=== PATIENT | female | born 1955 | race Hispanic/Latino ===

== ENCOUNTER 2018-07-10 16:11 | Emergency (ER) | payer OTHER ==
[2018-07-10 16:11] VITALS: BMI 31.6
[2018-07-10 17:24] VITALS: RESP 18; TEMP 97.8; O2SAT 98
--- NOTE | 2018-07-10 17:46 | ED PDOC ---
Arrival/HPI - General Chief Complaint: Lower Extremity Problem/Injury Time Seen by Provider: 07/10/18 17:33 Historian: Patient - History of Present Illness Narrative History of Present Illness (Text): 07/10/18 17:41 63 year old female, pmh including hypertension/hypercholesterolemia/diabetes, nkda, complaining of lt. lateral knee pain s/p hit on the bus bench about 1 week ago. Aching pain, aggravated by long hours of standing, no numbness or tingling, no palpitation, no rash, no palpitation, no numbness or tingling, no other medical or psychological complaints. Past Medical History - Provider Review Nursing Documentation Reviewed: Yes - Tetanus Immunization Tetanus Immunization: Unknown - Reproductive Menopause: Yes - Cardiac Hx Cardiac Disorders: Yes Hx Hypertension: Yes - Endocrine/Metabolic Hx Endocrine Disorders: Yes Hx Diabetes Mellitus Type 2: Yes - Psychiatric Hx Anxiety: Yes Hx Substance Use: No - Surgical History Other/Comment: bilat bunion removal, dental - Anesthesia Hx Anesthesia: Yes Hx Anesthesia Reactions: No Hx Malignant Hyperthermia: No - Suicidal Assessment Feels Threatened In Home Enviroment: No Family/Social History - Physician Review Nursing Documentation Reviewed: Yes Family/Social History: Unknown Family HX Smoking Status: Never Smoked Hx Alcohol Use: No Hx Substance Use: No Hx Substance Use Treatment: No Allergies/Home Meds Allergies/Adverse Reactions: Allergies No Known Allergies Allergy (Verified 07/10/18 17:24) Home Medications: Home Meds Medication Instructions Recorded Confirmed Atenolol/Chlorthalidone 1 tab PO DAILY 11/26/14 07/10/18 [Atenolol/Chlorthalidone 50 mg-25 mg] Lisinopril [Zestril] 20 mg PO DAILY 07/10/18 07/10/18 Lovastatin [Altoprev] 20 mg PO DAILY 07/10/18 07/10/18 metFORMIN [glucOPHAGE] 500 mg PO BID 07/10/18 07/10/18 Review of Systems - Review of Systems Constitutional: absent: Fatigue, Fevers Eyes: absent: Vision Changes ENT: absent: Hearing Changes Respiratory: absent: SOB, Cough Cardiovascular: absent: Chest Pain Gastrointestinal: absent: Abdominal Pain, Nausea, Vomiting Genitourinary Female: absent: Dysuria Musculoskeletal: Arthralgias. absent: Back Pain, Neck Pain Skin: absent: Rash, Pruritis, Skin Lesions Neurological: absent: Headache, Dizziness Psychiatric: absent: Anxiety, Depression, Suicidal Ideation Physical Exam Vital Signs Reviewed: Yes Vital Signs Temp Pulse Resp BP Pulse Ox 07/10/18 17:20 97.8 F 96 H 18 182/82 H 98 Temperature: Afebrile Blood Pressure: Hypertensive Pulse: Regular Respiratory Rate: Normal Appearance: Positive for: Well-Appearing, Non-Toxic, Comfortable Pain Distress: Mild Mental Status: Positive for: Alert and Oriented X 3 - Systems Exam Head: Present: Atraumatic, Normocephalic Pupils: Present: PERRL Extroacular Muscles: Present: EOMI Conjunctiva: Present: Normal Mouth: Present: Moist Mucous Membranes Neck: Present: Normal Range of Motion Respiratory/Chest: Present: Clear to Auscultation, Good Air Exchange. No: Respiratory Distress, Accessory Muscle Use Cardiovascular: Present: Regular Rate and Rhythm, Normal S1, S2. No: Murmurs Abdomen: No: Tenderness, Distention, Peritoneal Signs Back: Present: Normal Inspection Upper Extremity: Present: Normal Inspection, Normal ROM, NORMAL PULSES, Neurovascularly Intact, Capillary Refill < 2s, Norm 2-Pt Discrimination. No: Cyanosis, Edema, Deformity Lower Extremity: Present: Normal Inspection, Normal ROM, Deformity, Capillary Refill < 2 s, Other (Lt. knee: +ttp on the lateral of the left knee, no swelling, no joint laxity, negative kaz and whitley signs, FROM without limitation, sensation intact, motor 5/5, neurovascular intact. ). No: Edema Neurological: Present: GCS=15, CN II-XII Intact, Speech Normal, Motor Func Gr ossly Intact, Normal Cerebellar Funct, Gait Normal, Memory Normal Skin: Present: Warm, Dry, Normal Color. No: Rashes Psychiatric: Present: Alert, Oriented x 3, Normal Insight, Normal Concentration Medical Decision Making ED Course and Treatment: 07/10/18 17:47 -lt. knee xray -observe and reassess 07/10/18 18:56 -Lt. knee xray show no fracture or dislocation, degenerative changes noted, advise MRI if the pain perist -Kip wrap applied, she's not a crutches candidate, will give her cane. -Discharge home with celebrex, kip wrap, cane, ice compression, rest, avoid long hours of standing, followup with your own pmd and orthopedic within 2 days, return to the ER for any new or worsening signs or symptoms. - RAD Interpretation Radiology Orders: 07/10/18 17:41 KNEE WITH PATELLA LEFT 3 VIEW [RAD] Stat Date of service: 2018-07-10 18:48:38 PROCEDURE: Left Knee Radiographs. HISTORY: Pain. COMPARISON: None. FINDINGS: BONES: No evidence of acute displaced fracture nor dislocation. The osseous structures appear intact. . JOINTS: Joint spaces relatively preserved. However there appears to be very tiny medial marginal osteophyte formation arising from the tibial plateau. Slight spurring tibial spines. Tiny posterior patella osteophyte also felt be present. JOINT EFFUSION: None. OTHER FINDINGS: None. IMPRESSION: No acute fractures. Minimal degenerative osteoarthritis. 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 Disposition/Present on Arrival - Present on Arrival Any Indicators Present on Arrival: No History of DVT/PE: No History of Uncontrolled Diabetes: No Urinary Catheter: No History of Decub. Ulcer: No History Surgical Site Infection Following: None - Disposition Have Diagnosis and Disposition been Completed?: Yes Diagnosis: Knee injury, Knee pain Disposition: HOME/ ROUTINE Disposition Time: 18:57 Patient Plan: Discharge Patient Problems: Current Active Problems Problem Status Onset Knee injury Acute Knee pain Acute Condition: IMPROVED Additional Instructions: -Discharge home with celebrex, kip wrap, cane, ice compression, rest, avoid long hours of standing, followup with your own pmd and orthopedic within 2 days, return to the ER for any new or worsening signs or symptoms. Prescriptions: Celecoxib [CeleBREX] 200 mg PO DAILY PRN #10 cap PRN Reason: Other Referrals: Calderon Asif MD [Primary Care Provider] - Follow up with primary Enzo Gonzalez MD [Staff Provider] - Follow up with primary Forms: [employer] ([place]), WORK NOTE
--- NOTE | 2018-07-10 19:01 | RAD ---
Date of service: 2018-07-10 18:48:38 PROCEDURE: Left Knee Radiographs. HISTORY: Pain. COMPARISON: None. FINDINGS: BONES: No evidence of acute displaced fracture nor dislocation. The osseous structures appear intact. . JOINTS: Joint spaces relatively preserved. However there appears to be very tiny medial marginal osteophyte formation arising from the tibial plateau. Slight spurring tibial spines. Tiny posterior patella osteophyte also felt be present. JOINT EFFUSION: None. OTHER FINDINGS: None. IMPRESSION: No acute fractures. Minimal degenerative osteoarthritis. Consider follow-up MRI if symptoms persist or internal derangement suspected clinically
[2018-07-10 19:04] VITALS: BP 146/69; PULSE 90
== END 2018-07-10 19:23 | disposition home or self-care (01) ==
LOC: ED 16:11
DX: S89.92XA Unspecified injury of left lower leg, initial encounter (principal); W22.8XXA Striking against or struck by other objects, initial encounter; E11.9 Type 2 diabetes mellitus without complications; E78.00 Pure hypercholesterolemia, unspecified; I10 Essential (primary) hypertension

== ENCOUNTER 2018-08-01 09:28 | Outpatient (CLI) | payer OTHER | END 2018-08-01 09:29 | disposition home or self-care (01) | LOC: RAD 09:28 | DX: Z12.31 Encounter for screening mammogram for malignant neoplasm of breast (principal) ==